=== PATIENT | female | born 1965 | race African-American/Black ===

== ENCOUNTER 2017-05-21 14:31 | Emergency (ER) | payer OTHER ==
[~2017-05-21] VITALS: Ht 162.6 cm; Wt 86.3 kg
[~2017-05-21 14:31] MED LIST: FLEXERIL10 MG PO; MOTRIN800 MG PO; NORCO 5/3251 TABLET PO
[2017-05-21] MEDS ORDERED: NORCO 5/3251 TABLET PO (18:04)
[2017-05-21 18:52] VITALS: BP 138/59
== END 2017-05-21 18:52 | disposition home or self-care (01) ==
LOC: EME 14:31
DX: S83.91XA Sprain of unspecified site of right knee, initial encounter (principal); Y93.01 Activity, walking, marching and hiking; Z88.6 Allergy status to analgesic agent
CPT/HCPCS: 73564; 99281; 99284

== ENCOUNTER 2017-09-01 08:43 | Emergency (ER) | payer BC, OTHER ==
[~2017-09-01] VITALS: Ht 162.6 cm; Wt 87.2 kg
[2017-09-01 09:38] LABS: BASOPHIL (%) 1.5 % (0-1); BASOPHIL COUNT 0.1 K/uL (0-0.1); EOSINOPHIL (%) 1.6 % (0-5); EOSINOPHIL COUNT 0.1 K/uL (0-0.3); HEMOGLOBIN 13.1 G/DL (11.9-15.5); IMMATURE GRANULOCYTE (%) 0.4 % (0.0-0.7); LYMPHOCYTE COUNT 2.3 K/uL (1.0-2.8); MCH 28.1 PG (29.0-34.0); MCHC 33.6 G/DL (30.0-36.0); MCV 83.5 FL (83-99); MONOCYTE (%) 6.4 % (3-12); MONOCYTE COUNT 0.4 K/uL (0-0.8); NEUTROPHIL (%) 49.1 % (45-76); NEUTROPHIL COUNT 2.7 K/uL (1.8-6.4); PLATELET COUNT 252 K/uL (156-360); RBC DIS.WIDTH-CV 13.2 % (11.8-14.6); RBC DIS.WIDTH-SD 40.1 % (39-53); RED BLOOD COUNT 4.67 M/uL (3.80-5.20); WHITE BLOOD COUNT 5.5 K/uL (4.1-10.2)
[2017-09-01 09:46] LABS: CHLORIDE 108 mEq/L (99-109); POTASSIUM 4.2 mEq/L (3.7-5.4); SODIUM 138 mEq/L (136-147)
[2017-09-01 09:48] LABS: GLUCOSE 91 mg/dL (70-99)
[2017-09-01 09:51] LABS: CREATININE 0.9 mg/dL (0.6-1.3); GFR ESTIMATE (CALCULATED) > 59 mL/min/
[2017-09-01 09:52] LABS: UREA NITROGEN (BUN) 14 mg/dL (9-23)
[2017-09-01 09:58] LABS: TROP-I INTERPRETATION NEGATIVE; TROPONIN-I < 0.01 ng/mL (0.0-0.30)
[2017-09-01 12:28] LABS: TROP-I INTERPRETATION NEGATIVE; TROPONIN-I < 0.01 ng/mL (0.0-0.30)
[2017-09-01 12:48] VITALS: BP 126/62
== END 2017-09-01 12:49 | disposition home or self-care (01) ==
LOC: EME 08:43
PROVIDERS: Emergency Medicine
DX: R07.89 Other chest pain (principal); Z88.6 Allergy status to analgesic agent
CPT/HCPCS: 71045; 80048; 84484; 85025; 93005; 99281; 99284